=== PATIENT | female | born 1980 | race Two or more races ===

== ENCOUNTER 2017-10-01 21:00 | Emergency (ER) | payer OTHER ==
[~2017-10-01] VITALS: Ht 170.2 cm; Wt 77.1 kg
[2017-10-01] MEDS ORDERED: SYNTHROID50 MCG (22:09)
== END 2017-10-02 01:39 | disposition home or self-care (01) ==
LOC: ER 21:00
DX: S30.870A Other superficial bite of lower back and pelvis, initial encounter (principal); W54.0XXA Bitten by dog, initial encounter; Y93.89 Activity, other specified; Y92.89 Other specified places as the place of occurrence of the external cause; Y99.8 Other external cause status

== ENCOUNTER 2018-02-05 20:55 | Inpatient (IN) | payer OTHER ==
[~2018-02-05] VITALS: Ht 172.7 cm; Wt 84.8 kg
[~2018-02-05 20:55] MED LIST: SYNTHROID50 MCG
[2018-02-05] MEDS ORDERED: PRENATAL TABLE1 EAC1 PO (21:44)
== END 2018-02-07 16:38 | disposition home or self-care (01) | DRG 833 ==
LOC: OBS/DEL 20:55 → LDR 02-06 20:12
PROVIDERS: ADMIT Obstetrics & Gynecology
PROC: BW40ZZZ Ultrasonography of Abdomen (ICD-10-PCS; principal; 2018-02-06)
PROC: 4A1HXCZ Monitoring of Products of Conception, Cardiac Rate, External Approach (ICD-10-PCS; 2018-02-06)
DX: O26.892 Other specified pregnancy related conditions, second trimester (principal); K42.9 Umbilical hernia without obstruction or gangrene; Z34.82 Encounter for supervision of other normal pregnancy, second trimester

== ENCOUNTER 2018-03-05 03:54 | Outpatient (CLI) | payer OTHER ==
[~2018-03-05 03:54] MED LIST changes: +PRENATAL TABLE1 EAC1 PO
== END 2018-03-05 12:00 | disposition home or self-care (01) ==
LOC: OBS/DEL 03:54
DX: O60.03 Preterm labor without delivery, third trimester (principal); Z34.83 Encounter for supervision of other normal pregnancy, third trimester

== ENCOUNTER 2018-04-23 23:46 | Inpatient (IN) | payer OTHER ==
[~2018-04-23] VITALS: Ht 172.7 cm; Wt 86.6 kg
== END 2018-04-28 20:53 | DRG 785 ==
LOC: OBS/DEL 23:46 → LDR 04-24 11:39 → OB/GYN 04-24 11:39 → O/R 04-25 17:42 → OB/GYN 04-25 18:17
PROVIDERS: ADMIT Obstetrics & Gynecology
PROC: 0UL70ZZ Occlusion of Bilateral Fallopian Tubes, Open Approach (ICD-10-PCS; 2018-04-25)
PROC: 4A1HXCZ Monitoring of Products of Conception, Cardiac Rate, External Approach (ICD-10-PCS; 2018-04-25)
PROC: 10D00Z1 Extraction of Products of Conception, Low, Open Approach (ICD-10-PCS; principal; 2018-04-25 16:00)
DX: O42.913 Preterm premature rupture of membranes, unspecified as to length of time between rupture and onset of labor, third trimester (principal); O82 Encounter for cesarean delivery without indication; Z3A.36 36 weeks gestation of pregnancy; Z37.0 Single live birth; Z30.2 Encounter for sterilization; Z22.330 Carrier of Group B streptococcus; Z88.8 Allergy status to other drugs, medicaments and biological substances